=== PATIENT | male | born 1970 | race Caucasian/White ===

== ENCOUNTER 2022-11-10 09:13 | Outpatient (CLI) | payer SELFPAY | END 2022-11-10 09:14 | disposition home or self-care (01) | LOC: NFLDREF 13:41 | PROVIDERS: PCP Family Medicine; Referring Provider Family Medicine; Visit Provider Family Medicine | DX: Z00.00 Encounter for general adult medical examination without abnormal findings (principal); E78.5 Hyperlipidemia, unspecified; Z12.5 Encounter for screening for malignant neoplasm of prostate | CPT/HCPCS: 80053; 80061; 84153 ==

== ENCOUNTER 2023-11-13 11:03 | Outpatient (CLI) | payer OTHER, SELFPAY | END 2023-11-13 11:04 | disposition home or self-care (01) | LOC: NFLDREF 11-15 03:36 | PROVIDERS: PCP Family Medicine; Referring Provider Family Medicine; Visit Provider Family Medicine | DX: Z00.00 Encounter for general adult medical examination without abnormal findings (principal); R73.03 Prediabetes; Z12.5 Encounter for screening for malignant neoplasm of prostate; Z13.6 Encounter for screening for cardiovascular disorders | CPT/HCPCS: 80053; 80061; G0103 ==

== ENCOUNTER 2024-01-25 06:11 | Day surgery (SDC) | payer OTHER, SELFPAY ==
[2024-01-25] VITALS (13 sets, daily range): BP systolic 111–134; BP diastolic 64–78; PULSE 51–71; RESP 12–16; TEMP 36.2–36.7; O2SAT 95–98; BMI 31.7
[2024-01-25] MEDS: LACTATED RINGERS 1000 ML 1,000 ML 100 ML IV (06:10)
--- OUTSIDE RECORDS SUMMARY | 2024-01-25 06:16 | XMS_ITS | Clinical Summary ---
Author Organization [facility] Address [place], [place] [address] Care Team Providers Care Assembler Convertible Top Name Role Phone Votel, Lance Peter MD Primary Care Provider + Allergies Active Allergy Reactions Criticality Noted Date Comments Doxycycline 01/12/2006 welts on skin Medications Medication Sig Dispensed Refills Start Date End Date Status amoxicillin-clavulanat e 875-125 mg tablet (AUGMENTIN)Indications :Insect bite, unspecified site, subsequent encounter Take 1 Tablet by mouth 2 times daily with meals. 14 Tablet 12/14/2020 Active Active Problems Problem Noted Date Diagnosed Date Attention deficit disorder (ADD) 11/14/2014 Routine adult health maintenance 01/31/2014 Overview (01/31/2014): Colonoscopy 01/2014 normal, repeat in 5 years Displacement of cervical int ervertebral disc without myelopathy 10/21/2012 Cervical radiculopathy at left C6 10/21/2012 Carpal tunnel syndrome of left wrist 10/21/2012 Elevated liver enzymes 09/04/2012 Sleep disorder 09/04/2012 Generalized anxiety disorder 08/20/2012 CHRISTA 11/25/2011 AHI-15/Supine 51 11/30/2011 Depression 05/27/2011 Resolved Problems Problem Noted Date Diagnosed Date Resolved Date Anxiety state, unspecified 09/04/2012 0 10/21/2012 Anxiety state, unspecified 05/27/2011 0 08/20/2012 Pneumonia, organism unspecified(486) 04/02/2011 05/27/2011 Overview (05/27/2011): RML. Also, Possible nodule projecting in the retrosternal region on the lateral view. Recommend a repeat chest radiograph 3-4 weeks following therapy. Repeat CXR ordered 05/07/11 - normal with complete resolution and no nodule seen. Immunizations Name Administration Dates Next Due HepA-HepB (Twinrix) 03/29/2014 Hepatitis B (Adult) 10/18/2003,09/20/2003 Influenza Virus, Unspecified 04/04/2010 Influenza, IIV3 (Age >=3 years) 02/24/2013,03/23,02/01/2009 Influenza, IIV4 02/17/2017,03/29/2014 Tdap 12/21/2014,10/27/2007 Family History Medical History Relation Name Comments Good Health Brother Cancer-colon Father Good Health Father Cancer Mother Thigh sarcoma Diabetes No Family History Heart Disease No Family History Relation Name Status Comments Brother Father Mother Social History Tobacco Use Types Packs/Day Years Used Date Smoking Tobacco: Never Smokeless Tobacco: Never Tobacco Cessation:Counseling Given: Yes Alcohol Use Standard Drinks/Week Comments Yes 13.3 (1 standard dri nk = 0.6 oz pure alcohol) 1 times per week. 6-7 beers. PHQ-2 Answer Date Recorded PHQ-2 Score 5 07/19/2018 Social Connections Answer Date Recorded Frequency of Communication with Friends and Fami ly Not on file 05/18/2021 Financial Resource Strain Answer Date R ecorded Difficulty of Paying Living Expenses Not on file 05/18/2021 Difficulty of Paying Living Expenses Not on file 05/18/2021 Sex and Gender Information Value Date Recorded Sex Assigned at Not on file Gender Identity Not on file Sexual Orientation Not on file Obstetrics History Last Filed Vital Signs Vital Sign Reading Time Taken Comments Blood Pressure 114/62 12/11/2020 2:42 PM CDT Pulse 73 12/11/2020 2:42 PM CDT Temperature 36.8 ??C (98.3 ??F) 12/11/2020 2:42 PM CD T Respiratory Rate - - Oxygen Saturation 96% 12/11/2020 2:42 PM CDT Inhaled Oxygen Concentration - - Weight 108.4 kg (239 lb) 12/11/2020 2:42 PM CDT Height 185.4 cm (6' 0.99) 12/11/2020 2:42 PM CD T Body Mass Index 31.54 12/11/2020 2:42 PM CDT Plan of Treatment Health Maintenance Due Date Last Done Comments Depression screening for age 12+ 11/05/2018 11/05/2017 Zoster (shingles) series for age 50+ (1 of 2) 2019 Lipids for age 45-75 03/28/2019 03/28/2014, 12/18/19 12 BMI (ht and wt on same day) for age 18+ 12/11/2021 12/11/2020, 10/04/2019, 09/30/2019 COVID-19 vaccine series ( season) 2024 09/13/2020 Influenza for age 50-64 01/17/2024 02/18/20 17, 03/29/2014, 02/24/2013, Additional history exists Colonoscopy through age 75 02/01/2024 01/31/2014 Tetanus booster 12/21/2024 12/21/2014, 10/16, 10/27/2007 (Completed outside of [facility]) HIV for age 15-65 Completed 10/30/2014, , 12/01/2012, Additional history exists Hepatitis C screening for age 18-79 Completed 10/30/2014, 03/28/2014, 12/01/2012, Additional history exists Tdap Completed 12/21/2014, 10/27/2007 Pneumococcal series for age 6-64 Aged Out No longer eligible based on patient's age to complete this topic Procedures Procedure Name Priority Date/Time Associated Diagnosis Comments ANTI HIV 1/2 Routine 10/30/2014 3:07 PM CDT Screen for STD (sexually transmitted disease) ANTI HCV Routine 10/30/2014 3:07 PM CDT Screen for STD (sexually transmitted disease) LIPID PANEL W REFLEX MEASURED LDL Routine 03/28/2014 11:54 AM HOUSEKEEPER Routine general medical examination at a health care facility from Last 3 Months or Most Recently Relevant to Health Maintenance Results * ANTI HCV (10/30/2014 3:07 PM CDT) HEPATITIS C ANTIBODY Non-Reacti ve Non-Reacti ve 10/30/2014 8:17 PM CDT [facility] Blood specimen (specimen) BLOOD SPECIMEN / Unknown Venipuncture / Unknown 10/30/2014 3:07 PM CDT 10/30/2014 3:07 PM CDT Narrative [facility] - 10/30/2014 8:17 PM CDT Antibodies to HCV not detected; does not exclude the possibility of exposure to HCV. Stacy [facility] [address] [place] [address], [place] * ANTI HIV 1/2 (10/30/2014 3:07 PM CDT) Pathologist [facility] HIV-1/HIV-2 ANTIBODY Non-Reacti ve Non-Reacti ve 10/30/2014 8:16 PM CDT [facility] Blood specimen (specimen) BLOOD SPECIMEN / Unknown Venipuncture / Unknown 10/30/2014 3:07 PM CDT 10/30/2014 3:07 PM CDT Narrative [facility] - 10/30/2014 8:16 PM CDT HIV-1 p24 and HIV-1/HIV-2 Ab not detected Stacy [facility] [address] [place] [address], [place] * (ABNORMAL) LIPID PANEL W REFLEX MEASURED LDL (03/28/2014 11:54 AM HOUSEKEEPER) CHOLESTEROL,TOTAL 205(H) 100 - 199 mg/dL 03/28/2014 12:30 PM HOUSEKEEPER [facility] TRIGLYCERIDES 183(H) <150 mg/dL 03/28/2014 12:30 PM HOUSEKEEPER [facility] HDL CHOLESTEROL 49 >40 mg/dL 4 12:30 PM HOUSEKEEPER [facility] NON-HDL CHOLESTEROL 156(H) <145 mg/dl 03/28/2014 12:30 PM HOUSEKEEPER [facility] CHOL/HDL RATIO 4.18 <4.50 03/28/2014 12:30 PM HOUSEKEEPER [facility] LDL CHOLESTEROL 119 <=130 mg/dL 03/28/2014 12:30 PM HOUSEKEEPER [facility] PATIENT STATUS NON-FASTI NG 03/28/2014 12:30 PM HOUSEKEEPER [facility] Blood specimen (specimen) BLOOD SPECIMEN / Unknown Venipuncture / Unknown 03/28/2014 11:54 AM HOUSEKEEPER 03/28/2014 11:55 AM HOUSEKEEPER Lance Ruiz MD CHEMISTRY [facility] [address] [place] [address], from Last 3 Months or Most Recently Relevant to Health Maintenance Care Teams Assembler Convertible Top Relationship Specialty Start Date End Date Lance Ruiz MD [address] [place] [address] PCP - General Family Practice 04/04/13
--- NOTE | 2024-01-25 06:58 | W.PM.H&PU ---
History & Physical Update History & Physical Update H&P Reviewed and patient assessed: No changes noted
[2024-01-25] MEDS: SODIUM CHLORIDE 0.9 % (FLUSH) 10 ML SYRINGE IVF (07:00)
--- NOTE | 2024-01-25 07:00 | P.GSOP_ITS ---
Operative Note Date of procedure: 01/25/24 Pre-op diagnosis: 1. Symptomatic bilateral inguinal hernias. Post-op diagnosis: 1. Bilateral direct inguinal hernias. Type of Procedure: 1. Laparoscopic bilateral inguinal hernia repair with mesh. Indications: 53-year-old male with history of bilateral inguinal hernia repair as a child was seen in clinic for evaluation of bilateral inguinal hernias. Patient had a history of left inguinal hernia for while. Surgical consultation was recommended a long time ago however patient did not present to clinic up until he started to develop pain in the left groin. The pain was radiating to his left testicle. Patient was doing heavy lifting prior to onset of pain. On clinical exam with the patient standing up and doing Valsalva bilateral inguinal hernias were palpated with the left being slightly larger than the right. The hernias were reducible. Given patient's clinical history and his physical exam, laparoscopic bilateral inguinal hernia repair was recommended. The procedure was discussed in detail. The risks associated procedure including infection, bleeding, nerve pain, injury to preperitoneal organs, and hernia recurrence were all discussed with the patient, and he agreed to proceed. Procedure Description: After discussing the risks and benefits of the procedure, the patient signed informed consent.? The operative site was marked and the patient was brought to the operating room and placed on the operating table in supine position.? Care was taken to pad the patient's pressure points.?? The patient was then intubated by anesthesia.?? The operative site was then prepped and draped in the usual sterile fashion.? A time-out was then performed. An infraumbilical skin incision was made with a scalpel and subcutaneous tissues were dissected with electrocautery. Anterior sheath was incised with electrocautery and rectus muscle was retracted laterally. A 12 mm spacemaker dissector system was introduced into the incision and advanced over the posterior sheath. Preperitoneal space was dissected with manually insufflating air under direct visualization. Once the tissues were dissected, the balloon was deflated and removed.? A laparoscopic balloon was placed into preperitoneal space and balloon was inflated. Preperitoneal space was insufflated with air. No bleeding was identified upon examination of preperitoneal space. We then placed two 5 mm ports suprapubically under direct visualization. ? The preperitoneal tissues were bluntly dissected with graspers.? The pubic bone was identified and? cleared from preperitoneal tissue.??We first started on the right side. Inferior epigastrics were identified but those were not near the abdominal wall and were retracted posteriorly and inferiorly. The right inferior epigastrics were then skeletonized bluntly. Direct inguinal hernia was identified on the right side. No preperitoneal structures were incarcerated in this hernia. The right spermatic cord was identified and was dissected from the lateral abdominal wall bluntly. Hemostasis was achieved with cautery. Green suture was identified from patient's previous inguinal hernia repair as a child. There was no evidence of indirect inguinal hernia. After this blunt dissection, the right inferior epigastrics were still inferior and would be in the way of mesh placement. I elected to divide the right inferior epigastrics. The inferior epigastrics on the right side were then clipped proximally and di stally with vascular clips and divided between the clips. This allowed increased space for mesh placement. Spermatic cord was dissected circumferentially bluntly. When adequate space was developed for mesh placement, we directed our attention to the left side. The left inferior epigastrics were identified and they were attached to the anterior abdominal wall in the usual location. The left spermatic cord was identified and dissected circumferentially. Direct hernia space was identified on the left side and no preperitoneal structures were incarcerated in this hernia defect. The Ethibond suture was identified on the left side as well and was located at the base of the spermatic cord. There was no evidence of recurrent indirect inguinal hernia. The left spermatic cord was dissected circumferentially bluntly. When adequate space was developed for mesh placement, a left sided Parietex? mesh was used and positioned around the spermatic cord. The mesh was tacked medially and laterally with?tacks.? Similarly, the right-sided prior tacks mesh was placed and positioned around the right spermatic cord. The mesh was tacked in place with tacks medially and laterally. Additional local anesthetic was injected directly into pre-peritoneal space. ? The space was deflated under direct visualization and mesh appeared to be still lying in a good position. The ports were then removed. Anterior sheath was then closed with a running 0-0 vicryl suture. Skin was closed with 4-0 monocryl using subcuticular stitch. Steri strips were applied over the laparoscopic?incisions. ? All counts were correct at the end of the case. Patient tolerated the procedure well and was transferred to PACU without any complications. Findings: Bilateral direct inguinal hernias repaired with mesh. Bilateral sutures were identified at the base of the spermatic cord from patient's previous hernia repair as a child. No indirect inguinal hernias were identified bilaterally. Anesthesia: GETA Surgeon: Snehal Duncan MD Estimated blood loss (mL): 5 Condition: stable Disposition: PACU
[2024-01-25] MEDS: CEFAZOLIN 2 GM INJ IVP (07:37)
[2024-01-25] MEDS: BUPIVACAINE 0.25% 30 ML INJECTION (08:55)
--- NOTE | 2024-01-25 09:16 | W.ANESCHARGE ---
Anesthesia Charges Start Date/Time Anesthesia Start Date: 01/25/24 Anesthesia Start Time: 07:27 Stop Date/Time Anesthesia Stop Date: 01/25/24 Anesthesia Stop Time: 09:13
[2024-01-25] MEDS: fentaNYL 100 MCG/2 ML inj 50 MCG IVP (09:29)
--- NOTE | 2024-01-25 09:33 | W.ANESCHARGE ---
Anesthesia Charges Start Date/Time Anesthesia Start Date: 01/25/24 Anesthesia Start Time: 07:27 Stop Date/Time Anesthesia Stop Date: 01/25/24 Anesthesia Stop Time: 09:13
--- NOTE | 2024-01-25 09:46 | SUR.PHASEI ---
patient met discharge criteria per anesthesia
[2024-01-25] MEDS: HYDROCODONE-ACETAMIN 5-325 MG 1 TAB PO (09:59)
== END 2024-01-25 11:00 | disposition home or self-care (01) ==
PROVIDERS: PCP Family Medicine; Visit Provider Surgery
PROC: (CPT 49650; principal; 2024-01-25 07:30)
DX: K40.20 Bilateral inguinal hernia, without obstruction or gangrene, not specified as recurrent (principal)
CPT/HCPCS: 49650; 00840; 00860; A9270; C1781; J0330; J0665; J0690; J1100; J1885; J2250; J2405; J2704; J2710; J3010; J7120